=== PATIENT | male | born 1960 | race Hispanic/Latino ===

== ENCOUNTER 2021-08-24 19:14 | Emergency (ER) | payer OTHER, SELFPAY ==
[2021-08-24] MEDS ORDERED: Morphine 4 MG/ML VIAL ONE (21:49)
[2021-08-24] MEDS ORDERED: Dexamethasone 4 MG TAB ONE (21:50)
[2021-08-24] MEDS ORDERED: Ondansetron ODT 4 MG TAB ONE (21:50)
== END 2021-08-24 22:30 | disposition home or self-care (01) ==
LOC: CSHERS 19:14
DX: M54.50 Low back pain, unspecified (principal); I10 Essential (primary) hypertension; Z79.899 Other long term (current) drug therapy
CPT/HCPCS: 96372; 99283; J2270; J8540; Q0162

== ENCOUNTER 2021-09-02 21:25 | Emergency (ER) | payer BC, SELFPAY ==
[2021-09-02] MEDS ORDERED: Diazepam 5 MG TAB ONE (22:40)
[2021-09-02] MEDS ORDERED: Morphine 10 MG/ML VIAL ONE (22:41)
[2021-09-02] MEDS ORDERED: Ketorolac Tromethamine 30 MG/ML VIAL ONE (22:41)
[2021-09-03 00:27] LABS: #Basophils 0.1 10x3/uL (0.0-0.2); #Eosinphils 0.3 10x3/uL (0.0-0.5); #Neutrophils 6.9 10x3/uL (1.5-8.4); %Basophils 0.6 % (0.0-2.0); %Lymphocytes 15.9 % (18.0-47.0); %Monocytes 10.3 % (0.0-10.0); %Neutrophils 69.9 % (40.0-75.0); Mean Corpuscular HGB CONC 32.7 g/dL (32.0-36.0); Mean Corpuscular Hemoglobin 27.8 pg (27.0-33.0); Mean Platelet Volume 9.6 fl (7.4-10.4); Platelet Count 252 10x3/uL (150-450); RBC Distribution Width 14.2 % (11.5-14.5); Red Blood Cell (RBC) Count 4.32 10x6/uL (4.32-5.72); White Blood Cell (WBC) Count 9.9 10x3/uL (3.5-10.5)
[2021-09-03 00:37] LABS: ALT (SGPT) 33 U/L (8-55); AST (SGOT) 21 U/L (5-34); Albumin 3.8 g/dL (3.5-5.0); Alkaline Phosphatase 120 U/L (40-110); Anion Gap 12 mmol/L (10-20); BUN (Urea Nitrogen) 16 mg/dL (8.4-25.7); Bilirubin, Total 0.3 mg/dL (0.2-1.2); Calc. Creatinine Clearance 0 mL/min (70-130); Calcium 9.2 mg/dL (7.8-10.44); Carbon Dioxide 27 mmol/L (22-29); Chloride 103 mmol/L (98-107); Globulin 2.9 g/dL (2.4-3.5); Glucose 119 mg/dL (70-105); Potassium 3.9 mmol/L (3.5-5.1); Protein, Total 6.7 g/dL (6.0-8.3); Sodium 138 mmol/L (136-145)
[2021-09-03] MEDS ORDERED: Morphine 4 MG/ML VIAL ONE (03:33)
[2021-09-03] MEDS ORDERED: Cefepime 2 GM VIAL ONE (05:40)
[2021-09-03] MEDS ORDERED: Morphine 4 MG/ML VIAL SLOW IVP PRN (07:39)
[2021-09-03] MEDS ORDERED: Ondansetron PF 4 MG/2 ML Vial IVP PRN (07:45)
[2021-09-03] MEDS ORDERED: Acetaminophen 325 MG TAB PO PRN (07:45)
[2021-09-03] MEDS ORDERED: Ondansetron ODT 4 MG TAB SL PRN (07:45)
== END 2021-09-03 06:56 | disposition short-term general hospital (02) ==
LOC: CSHERS 21:25
DX: M54.50 Low back pain, unspecified (principal); R19.00 Intra-abdominal and pelvic swelling, mass and lump, unspecified site; R59.0 Localized enlarged lymph nodes; L98.8 Other specified disorders of the skin and subcutaneous tissue; I10 Essential (primary) hypertension; Z79.899 Other long term (current) drug therapy
CPT/HCPCS: 36415; 70450; 71260; 72131; 74177; 80053; 85025; 93005; 96372; 96374; J0692; J1885; J2270